=== PATIENT | male | born 1930 | race Caucasian/White ===

== ENCOUNTER 2016-10-08 09:26 | Outpatient (CLI) | payer OTHER, MEDICARE ==
[2016-10-08 10:12] LABS: ALT (SGPT) 12 U/L (8-55); AST (SGOT) 14 U/L (5-34); Albumin 3.8 g/dL (3.4-4.8); Alkaline Phosphatase 64 U/L (40-150); Anion Gap 13 mmol/L (10-20); BUN (Urea Nitrogen) 16 mg/dL (8.4-25.7); Bilirubin, Total 0.6 mg/dL (0.2-1.2); Calc. Creatinine Clearance 0 mL/min (70-130); Calcium 8.8 mg/dL (7.8-10.44); Carbon Dioxide 26 mmol/L (23-31); Cardiac Risk 2.8 (Less than 4.5); Chloride 106 mmol/L (98-107); Cholesterol 147 mg/dl (< 200 Desired); Estimated GFR-MDRD 67; Globulin 2.3 g/dL (2.4-3.5); Glucose 90 mg/dL (83-110); HDL Cholesterol 52 mg/dL (>60 Neg Risk); LDL Cholesterol, Calculated 85 mg/dL; Potassium 4.6 mmol/L (3.5-5.1); Protein, Total 6.1 g/dL (5.8-8.1); Sodium 140 mmol/L (136-145); Triglycerides 50 mg/dL (Less than 150)
[2016-10-08 10:18] LABS: PSA-Asymptomatic (SCREENING) 0.48 ng/mL (0-4.0); Thyroid Stimulating Hormone 2.9424 uIU/mL (0.35-4.94)
[2016-10-08 11:38] LABS: #Eosinphils 0.1 thou/uL (0.0-0.7); #Lymphocytes 1.3 thou/uL (1.20-3.40); #Monocytes 0.4 thou/uL (0.11-0.59); #Neutrophils 3.9 thou/uL (1.40-6.50); %Basophils 0.5 % (0.0-1.0); %Eosinophils 1.3 % (0.0-10.0); %Lymphocytes 23.1 % (21.0-51.0); %Monocytes 7.5 % (0.0-10.0); %Neutrophils 67.6 % (42.0-75.0); Mean Corpuscular HGB CONC 32.8 g/dL (32.0-36.0); Mean Corpuscular Volume 88.5 fl (80.0-94.0); Mean Platelet Volume 6.7 fL (7.4-10.4); Platelet Count 176 thou/uL (130-400); RBC Distribution Width 14.5 % (11.5-14.5); Red Blood Cell (RBC) Count 4.83 mill/uL (4.70-6.10); White Blood Cell (WBC) Count 5.7 thou/uL (4.8-10.8)
[2016-10-08 13:20] LABS: Hemoglobin A1c 5.4 % (4.0-6.0)
== END 2016-10-08 09:27 | disposition home or self-care (01) ==
LOC: HPCALD 09:26
PROVIDERS: ATTEND Family Medicine
DX: Z12.5 Encounter for screening for malignant neoplasm of prostate (principal); E11.9 Type 2 diabetes mellitus without complications; I10 Essential (primary) hypertension; I48.91 Unspecified atrial fibrillation
CPT/HCPCS: 36415; 80053; 80061; 83036; 84443; 85025; G0103

== ENCOUNTER 2016-12-07 09:57 | Outpatient (CLI) | payer OTHER, MEDICARE ==
--- NOTE | 2016-12-10 09:00 | CT ---
CT OF THE LUMBAR SPINE WITHOUT CONTRAST: Date: 12-07-16 Comparison: 01-30-07 FINDINGS: Lumbar scoliosis convex right is present. No fracture or area of bony destruction was seen. The SI j oints were unremarkable. Findings by level follow: T11-12: No acute findings. Difficult to evaluate foramina. Large anterolateral osteophyte. T12-L1: No acute findings. There may be some slight foraminal narrowing by generalized disc bulging. L1-2: No acute findings. L2-3: Moderately severe central canal stenosis due to facet overgrowth and diffuse concentric disc b ulge. L3-4: Severe spinal stenosis due to the same as above. L4-5: A prominent diffuse concentric bulge of the disc. The foramina are probably patent. 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 L5-S1: Generalized bulging of the disc without focal herniation. IMPRESSION: Multilevel spinal stenosis. The degree of stenosis appears to have worsened since the 2006 study. POS: HOME
== END 2016-12-07 09:58 | disposition home or self-care (01) ==
LOC: BURCT 09:57
PROVIDERS: ATTEND Nurse Practitioner Family
DX: M48.06 Spinal stenosis, lumbar region (principal)
CPT/HCPCS: 72131